=== PATIENT | male | born 1955 | race Caucasian/White ===

== ENCOUNTER → 2019-05-21 11:42 | Day surgery (SDC) | payer OTHER ==
--- NOTE | 2019-05-12 17:57 | HP ---
PREOPERATIVE HISTORY AND PHYSICAL: DATE OF SURGERY/ADMISSION: 05/21/19 DATE OF OFFICE VISIT/ENCOUNTER: 05/05/19 ATTENDING SURGEON: Bisi Carpenter MD * (DICTATED BY DENICE WEEMS) PROCEDURE: Right hand Dupuytren's excision, right elbow ulnar nerve decompression. HISTORY OF PRESENT ILLNESS: This is a 63-year-old male who complains of numbness and tingling in his right pinky finger ongoing for over a year. He denies any injury, but the symptoms have progressively worsened. Additionally, he is complaining of painful lump in the palm of his right hand that had been present for over a year. Again, there was no injury to this hand. 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 Clinically, he has been diagnosed with ulnar nerve compression at the elbow and the Dupuytren's nodules in the palm of his right hand. He would like to address both of these problems surgically at this time. The patient reports some issues with easy bruising and questionable prolonged bleeding. We will order a blood work to evaluate that prior to proceeding with surgery. PAST MEDICAL HISTORY: Unremarkable. PAST SURGICAL HISTORY: 1. Hernia repair. 2. Ganglion cyst excision, right wrist. MEDICATIONS: None. FAMILY MEDICAL HISTORY: Unknown. SOCIAL HISTORY: The patient is employed in [employer]. He denies tobacco and recreational drug use. He drinks alcohol on a daily basis. REVIEW OF SYSTEMS: Negative for general, cephalic, cardiovascular, respiratory , GI, , other musculoskeletal, integumentary, endocrine, neurologic, and hematologic symptoms. Infectious Disease: Negative for MRSA, hepatitis C, HIV. PHYSICAL EXAMINATION GENERAL: A well-developed, well-nourished 68-year-old male, in no acute distress. VITAL SIGNS: Height 5 feet 8 inches, weight 180 pounds. Pulse rate 86, blood pressure 130/78. HEENT: Normocephalic, atraumatic. Pupils are equal, round, and reactive to light and accommodation. Extraocular movements are intact. Throat is clear. NECK: Supple. No palpable lymph nodes. PULMONARY: Lungs are clear to auscultation bilaterally. No wheezes, rales, or rhonchi. CARDIOVASCULAR: Regular rate and rhythm. S1, S2. No murmurs, rubs, or gallops. No edema. ABDOMEN: Positive bowel sounds. Soft, nontender. NEUROLOGICAL: Alert and oriented x3. Cranial nerves II through XII are intact. MUSCULOSKELETAL: On exam of his right upper extremity, he has a Dupuytren's nodule in the palm of his hand, but there are no contractures. He can make a full fist and he has good extension of the fingers. The nodule is very tender to palpation and is in line with the ring finger. He has decreased sensation to light touch in the ulnar nerve distribution in his hand and he has a significant Tinel's sign at the ulnar nerve of the elbow, but not at the wrist. He has good strength with resisting finger abduction. Skin is intact. IMPRESSION: Right elbow ulnar neuropathy and Dupuytren's nodule in the palm of right hand. PLAN: The patient is scheduled to undergo a right hand Dupuytren's excision, right elbow ulnar nerve decompression with Dr. Carpenter on 05/21/19. He will return to the office 10 days postop for followup and suture removal. A prescription for tramadol was e-scribed to the patient's pharmacy for postoperative pain management. DENICE WEEMS [id number]/[facility] #: [id number] KHADIJAH
[~2019-05-21 11:42] MED LIST: Buffered Lidocaine 1% SYRIN* 1 ML/SYRINGE INTRADERM ONE; Bupivacaine 0.25% SDV* 30 ML ONE; Bupivacaine 0.5% SDV PF* 30ML VIAL ONE; Lactated Ringers 1000 ML Bag* 1,000 ML IV SCH; Lidocaine 0.5%* 50 ML SDV ONE; Midazolam* 1 MG/ML 2 ML VIAL (2 MG) ONE; Midazolam* 1 MG/ML 5 ML VIAL (5 MG) ONE; Naloxone* 0.4 MG/ML 1 ML VIAL IV PRN; Propofol* 10 MG/ML 20 ML BTL ONE; ceFAZolin 2 GM PREMIX in ORs 2 GM/50 ML BAG ONE; fentaNYL* 50 MCG/ML 2 ML VIAL (100 MCG VIAL) ONE
[2019-05-21 14:36] VITALS: BP 143/96
--- NOTE | 2019-05-21 16:52 | OP ---
DATE OF OPERATION: 05/21/19 [facility] DATE OF : 57 SURGEON: Bisi Carpenter MD PRISON OFFICER: DENICE Pulido ANESTHESIA: Local MAC. PRE-OP DIAGNOSIS: Right hand Dupuytren's nodule and ulnar nerve compression of the right elbow. POST-OP DIAGNOSIS: Right hand Dupuytren's nodule and ulnar nerve compression of the right elbow. OPERATIVE PROCEDURE: Ulnar nerve decompression of the right elbow and Dupuytren excision from the right hand. ESTIMATED BLOOD LOSS: Zero. TOURNIQUET TIME: 35 minutes. INDICATION FOR PROCEDURE: Piero is a 63-year-old man who has numbness and tingling in the ulnar nerve distribution of his right hand as well as a Dupuytren's nodule in the palm of his right hand, which is painful. He presents for removal of the nodule and for ulnar nerve decompression of the right elbow. DESCRIPTION OF PROCEDURE: The patient was brought to the operating room and was given a sedation anesthetic and a local infiltration of 10 cc of 0.5% plain Marcaine in the palm of the right hand and additional injection of 10% of 0.5% plain Marcaine at the medial aspect of the right elbow. Additional 0.25% Marcaine and 0.5% lidocaine was injected at the elbow during the procedure. The skin of his right upper extremity was prepped and draped in the usual sterile fashion. The upper extremity was exsanguinated and the tourniquet elevated to 250 mmHg. A Chevron incision was made centered over the Dupuytren' s nodule in the palm of the hand. We dissected through the subcutaneous tissue. The skin flap was elevated off of the Dupuytren's tissue, which was removed in its entirety and sent for pathology. The wound was irrigated and skin edges were reapproximated with 4-0 nylon suture. Next, a curvilinear incision was made centered between the epicondyle and the tip of the olecranon process. We dissected through the subcutaneous tissue sharply down to the ulnar nerve at the cubital tunnel. The nerve was traced out proximally and distally for several centimeters above and below the elbow joint. The FCU fascia was divided. The medial intermuscular septum was divided and then the nerve was completely free and looked in good condition. The wound was irrigated. Subcutaneous tissue was closed with 3-0 Polysorb and the skin with skin jeff. The wounds were dressed with Xeroform, 4x4, Webril, and an Fernando wrap. The patient tolerated the procedure well and was brought to the recovery room in good condition. [id number]/[facility] #: [id number] MTDD
== END | disposition home or self-care (01) ==
LOC: OREAST 11:42
PROVIDERS: ATTEND Orthopaedic Surgery
DX: M72.0 Palmar fascial fibromatosis [Dupuytren] (principal); G56.21 Lesion of ulnar nerve, right upper limb; Z87.891 Personal history of nicotine dependence
CPT/HCPCS: 88304; J0690; J2250; J2704; J3010; J3490